=== PATIENT | female | born 1995 | race Two or more races ===

== ENCOUNTER 2023-02-23 22:42 | Emergency (ER) | payer OTHER ==
[~2023-02-23] VITALS: Ht 170.2 cm; Wt 56.7 kg
[2023-02-23 23:52] LABS: HEMATOCRIT 39.7 % (36.0-45.00); HEMOGLOBIN 12.7 g/dL (12.0-15.00); MEAN CELL VOLUME 87.6 fL (80.00-100.00); MEAN CORPUSCULAR HEMOGLOBIN 28.1 pg (27.00-32.0); MEAN CORPUSCULAR HGB CONC 32.1 g/dl (32.0-36.0); PLATELET COUNT 240 K/uL (150-450); RED BLOOD COUNT 4.54 M/uL (4.00-6.00); RED CELL DISTRIBUTION WIDTH 12.8 % (11.5-14.5)
[2023-02-24 00:19] LABS: CALCIUM 9.5 mg/dL (8.5-10.1); CREATININE SERUM 0.64 mg/dL (0.55-1.02); GFR 112.17; POTASSIUM 4.02 mEq/L (3.5-5.1)
== END 2023-02-24 03:24 | disposition home or self-care (01) ==
LOC: ER 22:42
PROVIDERS: General Practice
DX: R10.9 Unspecified abdominal pain (principal); R11.10 Vomiting, unspecified; K29.70 Gastritis, unspecified, without bleeding; F10.10 Alcohol abuse, uncomplicated